=== PATIENT | female | born 1985 | race Caucasian/White ===

== ENCOUNTER 2017-04-10 13:27 | Emergency (ER) | payer MEDICAID ==
[~2017-04-10] VITALS: Ht 152.4 cm; Wt 52.1 kg
[2017-04-10 14:42] LABS: BLOOD UREA NITROGEN 12 mg/dL (7-18)
[2017-04-10 14:43] LABS: PATH.CAST-FLAG NOT PRESENT; SPERM-FLAG NOT PRESENT; SRC-FLAG NOT PRESENT; XTAL-FLAG NOT PRESENT; YLC-FLAG NOT PRESENT
[2017-04-10 14:48] VITALS: BP 102/57
[2017-04-10] MEDS ORDERED: CEFTRIAXONE 1,000 MG IM ONE (16:00)
[2017-04-10] MEDS ORDERED: AZITHROMYCIN 500 MG TABLET PO ONE (16:00)
[2017-04-10] MEDS ORDERED: ONDANSETRON ODT 4 MG PO ONE (16:00)
[2017-04-10] MEDS ORDERED: CEFTRIAXONE 250 MG ONE (16:07)
[2017-04-10] MEDS ORDERED: AZITHROMYCIN 500 MG TABLET ONE (16:07)
[2017-04-10] MEDS ORDERED: LIDOCAINE 1%, 20ML ONE (16:07)
[2017-04-10] MEDS ORDERED: ONDANSETRON ODT 4 MG ONE (16:07)
== END 2017-04-10 16:56 | disposition home or self-care (01) ==
LOC: ED 15:45
DX: O03.88 Urinary tract infection following complete or unspecified spontaneous abortion (principal); O23.11 Infections of bladder in pregnancy, first trimester; O03.9 Complete or unspecified spontaneous abortion without complication; Z3A.01 Less than 8 weeks gestation of pregnancy; Z98.51 Tubal ligation status
CPT/HCPCS: 36415; 76801; 80048; 81001; 82040; 84702; 85025; 85610; 85730; 86901; 87077; 87086; 87210; 87491; 87591; 87808; 96372; 99285; J0696; Q0162; 87186